=== PATIENT | female | born 1990 | race Caucasian/White ===

== ENCOUNTER 2017-11-19 13:16 | Emergency (ER) | payer BC ==
--- NOTE | 2017-11-19 13:30 | UC ---
Skin Complaint HPI - HPI Summary HPI Summary: Pt presents as advised by health department for RIG and rabies vaccine. She tells me that she was in the [facility] and was petting a kitten in her hotel - the cat bit her. She received her first rabies vaccine and antibiotic treatment while in the [facility]. This was 3.5 days ago. Denies fever, chills , headache, dizziness, or pain. - History of Current Complaint Time Seen by Provider: 11/19/17 13:29 Stated Complaint: RABIES EXPOSURE Hx Obtained From: Patient Current Severity: None - Allergy/Home Medications Allergies/Adverse Reactions: Allergies Allergy/AdvReac Type Severity Reaction Status Date / Time No Known Allergies Allergy Verified 11/19/17 13:47 Review of Systems Constitutional: Negative Skin: Other - kitten bite to left index finger Respiratory: Negative Cardiovascular: Negative Gastrointestinal: Negative Neurovascular: Negative Neurological: Negative Psychological: Negative All Other Systems Reviewed And Are Negative: Yes PMH/Surg Hx/FS Hx/Imm Hx Previously Healthy: Yes Endocrine History: Thyroid Disease Psychological History: Anxiety - Surgical History Surgical History: None - Family History Known Family History: Positive: None - Social History Occupation: Employed Full-time Lives: With Family Alcohol Use: Occasionally Substance Use Type: None Smoking Status (MU): Never Smoked Tobacco Physical Exam - Summary Physical Exam Summary: GENERAL: NAD. WDWN. No pain distress. SKIN: 1mm area on left index finger pad of healing puncture wound. No erythema, edema, tenderness, or discharge NECK: Supple. Nontender. No lymphadenopathy. CHEST: CTAB. No r/r/w. No accessory muscle use. Breathing comfortably and in no distress. CV: RRR. Without m/r/g. Pulses intact. Brisk cap refill. NEURO: Alert. CN II-XII grossly intact. PSYCH: Age appropriate behavior. Triage Information Reviewed: Yes Course/Dx - Course Course Of Treatment: tdap was updated as she is unsure when her last one was. Rabies vaccine was given. 0.3mL of RIG was administered into and around the bite , the remainder was given in the thigh muscles. 9.8mL RIG in total. - Diagnoses Provider Diagnoses: Stray Cat bite. Potential rabies exposure Discharge - Sign-Out/Discharge Documenting (check all that apply): Discharge/Admit/Transfer - Discharge Plan Condition: Stable Disposition: HOME Patient Education Materials: Rabies Vaccine (By injection), Rabies Immune Globulin (By injection), Rabies (ED) Referrals: Briana Beach MD [Primary Care Provider] - Additional Instructions: If you develop a fever, shortness of breath, chest pain, new or worsening symptoms - please call your PCP or go to the ED. Your next vaccine is due on Day 7 - Billing Disposition and Condition Condition: STABLE Disposition: HOME
[2017-11-19 13:46] VITALS: BP 108/73
[2017-11-19] MEDS ORDERED: Rabies VIRUS VACCINE (Imovax)* 2.5 UNIT/ML 1 ML IM ONE (13:50)
[2017-11-19] MEDS ORDERED: Tetan/Diph/Pertus SYR(Tdap)* 0.5 ML SYR(BOOSTRIX) use SYR IM ONE ×2 (13:50→14:40)
[2017-11-19] MEDS ORDERED: Rabies Immune Globulin 10 ML* 150 UNIT/ML VIAL IM ONE (13:50)
== END 2017-11-19 14:55 | disposition home or self-care (01) ==
LOC: UCEAST 13:16
DX: S61.231D Puncture wound without foreign body of left index finger without damage to nail, subsequent encounter (principal); W55.01XD Bitten by cat, subsequent encounter; Z20.3 Contact with and (suspected) exposure to rabies; Z23 Encounter for immunization; E07.9 Disorder of thyroid, unspecified; F41.9 Anxiety disorder, unspecified
CPT/HCPCS: 90375; 90471; 90715; 96372; 99201; G0463